=== PATIENT | male | born 1970 | race African-American/Black ===

== ENCOUNTER 2018-09-06 09:37 | Emergency (ER) | payer MEDICAID ==
[~2018-09-06] VITALS: Ht 185.4 cm; Wt 84.0 kg
[2018-09-06] MEDS ORDERED: TETANUS, DIPHTHERIA, PERTUSSIS VAC/PF 0.5ML (>7YR OLD) IM ONE (10:15)
[2018-09-06] MEDS ORDERED: CLINDAMYCIN HCL 150MG CAPSULE PO SCH (12:00)
[2018-09-06 12:14] VITALS: BP 130/78
== END 2018-09-06 12:15 | disposition home or self-care (01) ==
LOC: ER 09:37
DX: S02.652A Fracture of angle of left mandible, initial encounter for closed fracture (principal); S02.641A Fracture of ramus of right mandible, initial encounter for closed fracture; S09.8XXA Other specified injuries of head, initial encounter; F12.10 Cannabis abuse, uncomplicated; F17.210 Nicotine dependence, cigarettes, uncomplicated; Z88.0 Allergy status to penicillin; Z71.6 Tobacco abuse counseling; Y04.0XXA Assault by unarmed brawl or fight, initial encounter; Y93.89 Activity, other specified; Y92.488 Other paved roadways as the place of occurrence of the external cause
CPT/HCPCS: 70486; 90471; 90715; 99284; 99406

== ENCOUNTER 2021-02-05 11:43 | Inpatient (IN) | payer MEDICAID ==
[~2021-02-05] VITALS: Ht 185.4 cm; Wt 86.2 kg
[2021-02-05] MEDS ORDERED: IPRATROPIUM BROMIDE (0.02%) 0.5MG/2.5ML NEB HHN STA (13:28)
[2021-02-05 14:18] LABS: BASOPHILS % 0.6 % (0.0-2.0); EOSINOPHILS % 1.1 % (0.0-5.0); HEMOGLOBIN. 14.8 g/dL (14.0-18.0); LYMPHOCYTES % 25.4 % (20.0-50.0); MEAN CORPUSCULAR HEMOGLOBIN 32.8 pg (28.0-32.0); MEAN CORPUSCULAR VOLUME 97.1 fL (80.0-94.0); MEAN PLATELET VOLUME 10.2 fl (7.4-10.4); MONOCYTES % 8.2 % (2.0-8.0); NEUTROPHILS % 64.7 % (40.0-76.0); PLATELET 180 x1000/uL (130-400); RED BLOOD CELL COUNT 4.53 mill/uL (4.7-6.1)
[2021-02-05 14:52] LABS: CHLORIDE 114 mEq/L (98-107)
[2021-02-05] MEDS: ALBUTEROL (0.083%) 2.5MG/3ML NEB HHN SCH ×3 (15:38→16:30)
[2021-02-05] MEDS ORDERED: IOHEXOL-350 100 ML BOTTLE ONE (16:26)
[2021-02-05] MEDS ORDERED: FUROSEMIDE 40MG/4ML VIAL IVP ONE (17:15)
[2021-02-05] MEDS ORDERED: ACETAMINOPHEN 325MG TABLET PO PRN (18:45)
[2021-02-05] MEDS ORDERED: ONDANSETRON HCL 4MG/2ML INJ IV PRN (18:45)
[2021-02-05] MEDS ORDERED: ENALAPRIL 1.25MG/ML VIAL 1ML IV PRN (18:45)
[2021-02-05] MEDS ORDERED: ENOXAPARIN 100MG/ML SYR SUBCUT NR (18:45)
[2021-02-05] MEDS: PANTOPRAZOLE SODIUM 40 MG/VIAL IV SCH (19:29)
[2021-02-05] MEDS: IPRATROPIUM/ALBUTEROL 0.5-3(2.5)MG/3ML NEB HHN SCH (20:18)
[2021-02-05 22:15] VITALS: BP 162/117
[2021-02-06] VITALS (7 sets, daily range): BP systolic 118–154; BP diastolic 74–114
[2021-02-06] MEDS: IPRATROPIUM/ALBUTEROL 0.5-3(2.5)MG/3ML NEB HHN SCH ×4 (01:35→22:45)
[2021-02-06 06:17] LABS: BASOPHILS % 0.7 % (0.0-2.0); EOSINOPHILS % 1.3 % (0.0-5.0); HEMATOCRIT. 45.5 % (42.0-52.0); HEMOGLOBIN. 15.8 g/dL (14.0-18.0); LYMPHOCYTES % 19.9 % (20.0-50.0); MEAN CORPUSCULAR HEMOGLOBIN 33.6 pg (28.0-32.0); MEAN CORPUSCULAR VOLUME 96.6 fL (80.0-94.0); MEAN PLATELET VOLUME 9.7 fl (7.4-10.4); MONOCYTES % 8.3 % (2.0-8.0); NEUTROPHILS % 69.8 % (40.0-76.0); PARTIAL THROMBOPLASTIN TIME 27.6 sec (23.4-31.0); PLATELET 189 x1000/uL (130-400); PROTHROMBIN TIME 11.2 sec (9.6-11.0); RED BLOOD CELL COUNT 4.71 mill/uL (4.7-6.1)
[2021-02-06 06:20] LABS: CHLORIDE 107 mEq/L (98-107)
[2021-02-06] MEDS: FUROSEMIDE 40MG/4ML VIAL IVP SCH ×2 (06:21→17:35)
[2021-02-06 06:30] LABS: CREATINE KINASE 509 IU/L (39-308)
[2021-02-06 06:35] LABS: CREATINE KINASE MB FRACTION 4.6 ng/mL (0.5-3.6)
[2021-02-06 07:52] LABS: HEPATITIS B SURFACE ANTIGEN NEGATIVE
[2021-02-06] MEDS: PANTOPRAZOLE SODIUM 40 MG/VIAL IV SCH (08:19)
[2021-02-06] MEDS ORDERED: POTASSIUM CHLORIDE 20MEQ/PACKET PO NR (10:00)
[2021-02-06] MEDS: LISINOPRIL 10MG TABLET PO SCH (10:44)
[2021-02-06] MEDS: AMLODIPINE 5MG TABLET PO SCH ×2 (10:44→21:18)
[2021-02-06] MEDS ORDERED: SODIUM BICARBONATE 4% (2.4MEQ) 5ML VIAL IV ONE (10:56)
[2021-02-06] MEDS ORDERED: LIDOCAINE HCL 1% 10 MG/ML 10ML VIAL ONE ×2 (11:53→12:10)
[2021-02-06 15:29] LABS: CLARITY URINE CLEAR (CLEAR); COLOR URINE YELLOW (YELLOW); KETONES URINE NEGATIVE (NEGATIVE); LEUKOCYTE ESTERASE URINE NEGATIVE (NEGATIVE); NITRITE URINE NEGATIVE (NEGATIVE); OCCULT BLOOD URINE NEGATIVE (NEGATIVE); PH URINE 7.5 (4.5-8.0); PROTEIN URINE NEGATIVE (NEGATIVE); SPECIFIC GRAVITY URINE 1.006 (1.005-1.030); UROBILINOGEN URINE 0.2 E.U./dL (0.2-1.0)
[2021-02-06 15:54] LABS: *AMPHETAMINES SCREEN URINE NEGATIVE (NEGATIVE)
[2021-02-06 15:55] LABS: *BARBITURATES SCREEN URINE NEGATIVE (NEGATIVE); *BENZODIAZEPINES SCREEN URINE NEGATIVE (NEGATIVE); *COCAINE SCREEN URINE PRESUMTIVE POSITIVE (NEGATIVE); CANNABINOID URINE SCREEN PRESUMTIVE POSITIVE (NEGATIVE); METHADONE URINE SCREEN NEGATIVE (NEGATIVE); PHENCYCLIDINE URINE SCREEN NEGATIVE (NEGATIVE)
[2021-02-06 15:58] LABS: OPIATES URINE SCREEN NEGATIVE (NEGATIVE)
[2021-02-06 16:37] LABS: CREATINE KINASE MB FRACTION 4.2 ng/mL (0.5-3.6)
[2021-02-06] MEDS: FAMOTIDINE 20MG/2ML VIAL IV SCH (21:17)
[2021-02-07] VITALS: BP 135/74
[2021-02-07 04:00] VITALS: BP 146/89
[2021-02-07] MEDS: FUROSEMIDE 40MG/4ML VIAL IVP SCH ×2 (06:23→17:35)
[2021-02-07 06:45] LABS: BASOPHILS % 0.3 % (0.0-2.0); EOSINOPHILS % 1.5 % (0.0-5.0); HEMATOCRIT. 51.9 % (42.0-52.0); HEMOGLOBIN. 17.4 g/dL (14.0-18.0); LYMPHOCYTES % 23.7 % (20.0-50.0); MEAN CORPUSCULAR HEMOGLOBIN 32.8 pg (28.0-32.0); MEAN CORPUSCULAR VOLUME 97.9 fL (80.0-94.0); MEAN PLATELET VOLUME 9.9 fl (7.4-10.4); MONOCYTES % 8.4 % (2.0-8.0); NEUTROPHILS % 66.1 % (40.0-76.0); PLATELET 190 x1000/uL (130-400); RED CELL DISTRIBUTION WIDTH 13.2 % (11.6-14.6)
[2021-02-07 07:02] LABS: CHLORIDE 105 mEq/L (98-107)
[2021-02-07 08:00] VITALS: BP 137/86
[2021-02-07] MEDS: FAMOTIDINE 20MG/2ML VIAL IV SCH ×2 (09:04→20:14)
[2021-02-07] MEDS: LISINOPRIL 10MG TABLET PO SCH ×2 (09:04→17:35)
[2021-02-07] MEDS: AMLODIPINE 5MG TABLET PO SCH ×2 (09:04→20:14)
[2021-02-07 12:00] VITALS: BP 129/87
[2021-02-07] MEDS: IPRATROPIUM/ALBUTEROL 0.5-3(2.5)MG/3ML NEB HHN SCH ×3 (12:00→21:15)
[2021-02-07 16:08] VITALS: BP 133/62
[2021-02-07 20:00] VITALS: BP 127/78
[2021-02-07] MEDS: CARVEDILOL 3.125 MG TABLET PO SCH (20:14)
[2021-02-08] VITALS: BP 96/60
[2021-02-08] MEDS: IPRATROPIUM/ALBUTEROL 0.5-3(2.5)MG/3ML NEB HHN SCH ×3 (03:15→12:52)
[2021-02-08 04:00] VITALS: BP 99/61
[2021-02-08 05:58] LABS: CHLORIDE 103 mEq/L (98-107)
[2021-02-08] MEDS: FUROSEMIDE 40MG/4ML VIAL IVP SCH (06:57)
[2021-02-08 08:00] VITALS: BP 130/86
[2021-02-08] MEDS: LISINOPRIL 10MG TABLET PO SCH (09:05)
[2021-02-08] MEDS: CARVEDILOL 3.125 MG TABLET PO SCH (09:05)
[2021-02-08] MEDS: AMLODIPINE 5MG TABLET PO SCH (09:05)
[2021-02-08] MEDS: FAMOTIDINE 20MG/2ML VIAL IV SCH (09:06)
[2021-02-08 12:00] VITALS: BP 110/67
[2021-02-08 12:51] VITALS: BP 110/67
[2021-02-08] MEDS ORDERED: CARVEDILOL 6.25 MG TABLET PO SCH (21:00)
== END 2021-02-08 17:36 | disposition left against medical advice (07) | DRG 190 ==
LOC: ER 11:43 → 6WST 17:10 → EDBEDREQTM 17:13 → EDBEDREQ 17:13 → ENRESERV 21:09
PROVIDERS: ADMIT Internal Medicine; ATTEND Internal Medicine
PROC: 0W9B3ZZ Drainage of Left Pleural Cavity, Percutaneous Approach (ICD-10-PCS; principal; 2021-02-06)
DX: I21.4 Non-ST elevation (NSTEMI) myocardial infarction (principal); I50.21 Acute systolic (congestive) heart failure; J91.8 Pleural effusion in other conditions classified elsewhere; I42.9 Cardiomyopathy, unspecified; K76.1 Chronic passive congestion of liver; I11.0 Hypertensive heart disease with heart failure; F12.10 Cannabis abuse, uncomplicated; F14.10 Cocaine abuse, uncomplicated; J98.11 Atelectasis; Z20.822 Contact with and (suspected) exposure to COVID-19; I20.0 Unstable angina; Z87.891 Personal history of nicotine dependence; Z88.0 Allergy status to penicillin
CPT/HCPCS: 32555; 36415; 71045; 71275; 76700; 80048; 80053; 80076; 80305; 81003; 82040; 82550; 82553; 83615; 83880; 84484; 85025; 85379; 86705; 86709; 86803; 87340; 87426; 88108; 93005; 93306; 93970; 94640; 99285; C1893; C9113; J1650; J1940; J3490; Q9967

== ENCOUNTER 2021-11-12 08:06 | Emergency (ER) | payer MEDICAID, OTHER ==
[~2021-11-12] VITALS: Ht 177.8 cm; Wt 75.0 kg
[2021-11-12 08:11] VITALS: BP 139/90
== END 2021-11-12 09:33 ==
LOC: ER 08:29
DX: Z02.79 Encounter for issue of other medical certificate (principal); Z20.822 Contact with and (suspected) exposure to COVID-19; I50.9 Heart failure, unspecified; Z87.891 Personal history of nicotine dependence
CPT/HCPCS: 87426; 99283; C9803

== ENCOUNTER 2024-04-19 14:18 | Emergency (ER) | payer MEDICAID, OTHER ==
[~2024-04-19] VITALS: Ht 185.4 cm; Wt 100.0 kg
[2024-04-19 14:34] VITALS: TEMP 36.9; O2SAT 95
[2024-04-19 15:50] LABS: BASOPHILS % 0.7 % (0.0-2.0); DIFFERENTIAL COMMENT 0; EOSINOPHILS % 1.1 % (0.0-5.0); HEMATOCRIT. 41.1 % (42.0-52.0); HEMOGLOBIN. 13.3 g/dL (14.0-18.0); LYMPHOCYTES % 28.7 % (20.0-50.0); MEAN CORPUSCULAR HEMOGLOBIN 30.5 pg (28.0-32.0); MEAN CORPUSCULAR HGB CONC 32.3 g/dL (31.0-37.0); MEAN CORPUSCULAR VOLUME 94.5 fL (80.0-94.0); MEAN PLATELET VOLUME 9.9 fl (7.4-10.4); MONOCYTES % 8.8 % (2.0-8.0); NEUTROPHILS % 60.7 % (40.0-76.0); PLATELET 153 x1000/uL (130-400); RED BLOOD CELL COUNT 4.35 mill/uL (4.7-6.1); WHITE BLOOD COUNT 5.1 x1000/uL (4.5-11.0)
[2024-04-19 15:57] LABS: CHLORIDE 110 mEq/L (98-107); SODIUM 142 mEq/L (136-145)
[2024-04-19 15:58] LABS: CALCIUM 9.1 mg/dL (8.7-10.4); CARBON DIOXIDE 27 mEq/L (21-32)
[2024-04-19 16:03] LABS: CREATININE 1.5 mg/dL (0.6-1.3); GLUCOSE 109 mg/dL (70-105); UREA NITROGEN BLOOD 21 mg/dL (9-23)
[2024-04-19 16:14] LABS: TROPONIN I HIGH SENSITIVITY 143 ng/L (3.0-53)
[2024-04-19 16:38] VITALS: BP 149/105; PULSE 101; RESP 24; O2SAT 96
[2024-04-19] MEDS ORDERED: LEVOFLOXACIN 750MG PREMIX 150 ML IV ONE (17:30)
[2024-04-19] MEDS: ASPIRIN 81MG TABLET PO ONE (17:46)
[2024-04-19] MEDS: FUROSEMIDE 40MG/4ML VIAL IV ONE (17:46)
== END 2024-04-19 17:51 | disposition home or self-care (01) ==
LOC: ER 14:18
DX: R06.02 Shortness of breath (principal); R79.89 Other specified abnormal findings of blood chemistry; I50.9 Heart failure, unspecified; Z88.0 Allergy status to penicillin; Z91.148 Patient's other noncompliance with medication regimen for other reason
CPT/HCPCS: 80048; 85025; 84484; 36415; 71045; 93005; 96374; 99285; Z7610 ×2; J1940